=== PATIENT | female | born 1985 | race Caucasian/White ===

== ENCOUNTER 2020-12-28 16:31 | Outpatient (CLI) | payer BC, OTHER ==
[~2020-12-28] VITALS: Ht 160 cm; Wt 104.0 kg
[2020-12-28] MEDS ORDERED: PREN1TAB60 PO (16:34)
[2020-12-28] MEDS ORDERED: vit d (16:34)
[2020-12-28 16:47] VITALS: BP 150/79
[2020-12-28 17:05] LABS: BASOPHILS % (AUTO) 0 % (0-1); EOSINOPHILS % (AUTO) 4 % (1-7); LYMPHOCYTES % (AUTO) 20 % (22-44); MD NO; MEAN CORPUSCULAR HEMOGLOBIN 28.7 pg (27.0-34.8); MEAN CORPUSCULAR HGB CONC 33.8 g/dL (32.4-35.8); MONOCYTES % (AUTO) 8 % (2-9); NEUTROPHILS % (AUTO) 69 % (42-75); PLATELET COUNT 244 x10^3/uL (130-400); RED BLOOD COUNT 4.24 x10^6/uL (3.82-5.3); RED CELL DISTRIBUTION WIDTH 16.6 % (9.6-15.2)
[2020-12-28 17:06] VITALS: BP 150/79
[2020-12-28 17:07] LABS: ALANINE AMINOTRANSFERASE 16 U/L (12-78); ALBUMIN 2.7 g/dL (3.4-5.0); ANION GAP 9 mmol/L (5-15); CALCIUM 8.5 mg/dL (8.5-10.1); CHLORIDE 110 mmol/L (98-107); CREATININE 0.64 mg/dL (0.55-1.02)
[2020-12-28 17:09] LABS: ALKALINE PHOSPHATASE 96 U/L (45-117); BILIRUBIN,TOTAL 0.2 mg/dL (0.2-1.0); TOTAL PROTEIN 6.2 g/dL (6.4-8.2)
[2020-12-28 17:16] LABS: PROTEIN/CREATININE RATIO,URINE < 246 (0-200); TOTAL PROTEIN,URINE RANDOM < 5 mg/dL (0-12)
[2020-12-28] MEDS ORDERED: ACET325T14 PO (17:52)
[2020-12-28] MEDS ORDERED: OMEP-110 PO (17:52)
[2020-12-28] MEDS ORDERED: MISOPROSTOL 25 MCG TABLET ONE (18:18)
== END 2020-12-28 18:40 | disposition home or self-care (01) ==
LOC: LDOP 16:31
PROVIDERS: ATTEND Obstetrics & Gynecology Maternal & Fetal Medicine
DX: O16.3 Unspecified maternal hypertension, third trimester (principal); Z3A.37 37 weeks gestation of pregnancy
CPT/HCPCS: 36415; 59025; 80053; 82570; 84156; 84550; 85025

== ENCOUNTER 2020-12-29 12:58 | Inpatient (IN) | payer BC ==
[~2020-12-29] VITALS: Ht 160 cm; Wt 104.9 kg
[~2020-12-29 12:58] MED LIST: ACET325T14 PO; OMEP-110 PO; PREN1TAB60 PO; vit d
[2020-12-29 16:00] VITALS: BP 131/89
[2020-12-29] MEDS ORDERED: CALCIUM CARBONATE 500 MG TAB.CHEW PO PRN (16:30)
[2020-12-29] MEDS ORDERED: TERBUTALINE 1 MG/ML, 1ML SQ PRN (16:30)
[2020-12-29] MEDS: D5%-LACTATED RINGERS 1,000 ML IV SCH (16:30)
[2020-12-29] MEDS ORDERED: TERBUTALINE 1 MG/ML, 1ML IVPush PRN (16:30)
[2020-12-29] MEDS ORDERED: ONDANSETRON 2MG/ML, 2ML IVPush PRN (16:30)
[2020-12-29] MEDS ORDERED: OXYTOCIN 30U/ 0.9% NaCL 500ML 500 ML IV ONE (16:30)
[2020-12-29] MEDS ORDERED: FENTANYL PF 100 MCG/2ML IV PRN (16:30)
[2020-12-29] MEDS ORDERED: FENTANYL PF 100 MCG/2ML IVPush PRN (16:30)
[2020-12-29] MEDS: LACTATED RINGERS 1,000 ML IV SCH (16:30)
[2020-12-29] MEDS ORDERED: NEWBORN KIT ONE (16:36)
[2020-12-29] MEDS ORDERED: MISOPROSTOL 25 MCG TABLET ONE ×2 (16:36→21:15)
[2020-12-29] MEDS ORDERED: LIDOCAINE 1%, 20ML ONE (16:36)
[2020-12-29] MEDS ORDERED: MISOPROSTOL 200 MCG TABLET ONE (16:36)
[2020-12-29] MEDS ORDERED: OXYTOCIN 30U/ 0.9% NaCL 500ML 500 ML ONE (16:36)
[2020-12-29 17:53] LABS: BASOPHILS % (AUTO) 0 % (0-1); EOSINOPHILS % (AUTO) 3 % (1-7); LYMPHOCYTES % (AUTO) 20 % (22-44); MEAN CORPUSCULAR HEMOGLOBIN 28.6 pg (27.0-34.8); MEAN CORPUSCULAR HGB CONC 33.3 g/dL (32.4-35.8); MEAN PLATELET VOLUME 9.1 fL (7.4-10.4); MONOCYTES % (AUTO) 9 % (2-9); NEUTROPHILS % (AUTO) 67 % (42-75); PLATELET COUNT 254 x10^3/uL (130-400); RED BLOOD COUNT 4.11 x10^6/uL (3.82-5.3); RED CELL DISTRIBUTION WIDTH 16.8 % (9.6-15.2)
[2020-12-29 18:02] LABS: MD NO
[2020-12-29 20:02] VITALS: BP 125/60
[2020-12-29] MEDS: MISOPROSTOL 25 MCG TABLET VG PRN (21:31)
[2020-12-30] MEDS: LACTATED RINGERS 1,000 ML IV SCH ×3 (00:30→16:30)
[2020-12-30] MEDS: D5%-LACTATED RINGERS 1,000 ML IV SCH ×3 (00:30→16:30)
[2020-12-30] MEDS ORDERED: MISOPROSTOL 25 MCG TABLET ONE (02:43)
[2020-12-30] MEDS: MISOPROSTOL 25 MCG TABLET VG PRN (02:45)
[2020-12-30] MEDS ORDERED: FENTANYL PF 100 MCG/2ML ONE (09:29)
[2020-12-30] MEDS ORDERED: OXYTOCIN 30U/ 0.9% NaCL 500ML 500 ML IV PRN (18:30)
[2020-12-30 19:09] VITALS: BP 140/87
[2020-12-30] MEDS ORDERED: FENTANYL/BUPIV./NS/PF 250 ML EPIDCONT SCH (23:00)
[2020-12-30] MEDS ORDERED: LACTATED RINGERS 1,000 ML IVBOLUS PRN (23:00)
[2020-12-30] MEDS ORDERED: FENTANYL/BUPIV./NS/PF 250 ML EPIDCONT ONE (23:42)
[2020-12-30] MEDS ORDERED: BUPIVACAINE 0.25% ONE (23:44)
[2020-12-31] MEDS ORDERED: LACTATED RINGERS 1,000 ML IV SCH (00:30)
[2020-12-31] MEDS ORDERED: EPHEDRINE 50 MG/ML, 1ML IVPush PRN (00:30)
[2020-12-31] MEDS ORDERED: LACTATED RINGERS 1,000 ML IVBOLUS PRN (00:30)
[2020-12-31] MEDS: D5%-LACTATED RINGERS 1,000 ML IV SCH (00:30)
[2020-12-31] MEDS: LACTATED RINGERS 1,000 ML IV SCH (00:30)
[2020-12-31] MEDS ORDERED: FENTANYL/BUPIV./NS/PF 250 ML EPIDCONT SCH (00:30)
[2020-12-31] MEDS ORDERED: ACETAMINOPHEN 325 MG TABLET ONE (02:09)
[2020-12-31] MEDS ORDERED: ACETAMINOPHEN 325 MG TABLET PO PRN ×3 (02:30→03:30)
[2020-12-31] MEDS ORDERED: OXYTOCIN 30U/ 0.9% NaCL 500ML 500 ML IV SCH (03:30)
[2020-12-31] MEDS ORDERED: MISOPROSTOL 200 MCG TABLET PR PRN (03:30)
[2020-12-31] MEDS ORDERED: CARBOPROST TROMETHAMINE 250 MCG/ML, 1ML IM PRN (03:30)
[2020-12-31] MEDS ORDERED: DIPH,PERTUSS(ACELL),TET VAC/PF NC IM-VACC PRN (03:30)
[2020-12-31] MEDS ORDERED: SIMETHICONE 80 MG CHEW TAB PO PRN (03:30)
[2020-12-31] MEDS ORDERED: OXYcodone/APAP 5/325MG TABLET PO PRN ×2 (03:30)
[2020-12-31 06:38] VITALS: BP 135/78
[2020-12-31] MEDS: DOCUSATE 100 MG CAPSULE PO PRN ×2 (08:11→22:23)
[2020-12-31] MEDS: PRENATAL VIT/IRON/FA 1 EACH TABLET PO SCH (08:11)
[2020-12-31] MEDS: IBUPROFEN 600 MG TABLET PO PRN ×3 (08:13→22:23)
[2020-12-31 08:24] VITALS: BP 130/77
[2020-12-31 12:05] LABS: BASOPHILS % (AUTO) 0 % (0-1); EOSINOPHILS % (AUTO) 0 % (1-7); LYMPHOCYTES % (AUTO) 11 % (22-44); MEAN CORPUSCULAR HEMOGLOBIN 28.1 pg (27.0-34.8); MEAN CORPUSCULAR HGB CONC 32.8 g/dL (32.4-35.8); MEAN PLATELET VOLUME 8.7 fL (7.4-10.4); MONOCYTES % (AUTO) 6 % (2-9); NEUTROPHILS % (AUTO) 83 % (42-75); PLATELET COUNT 249 x10^3/uL (130-400); RED CELL DISTRIBUTION WIDTH 16.8 % (9.6-15.2)
[2020-12-31 12:06] LABS: MD NO
[2020-12-31 13:00] VITALS: BP 126/82
[2020-12-31 19:45] VITALS: BP 138/83
[2021-01-01 01:50] VITALS: BP 115/75
[2021-01-01] MEDS ORDERED: IBUP-1222 PO (07:02)
[2021-01-01 07:35] VITALS: BP 102/71
[2021-01-01] MEDS: DOCUSATE 100 MG CAPSULE PO PRN (07:48)
[2021-01-01] MEDS: PRENATAL VIT/IRON/FA 1 EACH TABLET PO SCH (07:48)
[2021-01-01] MEDS: IBUPROFEN 600 MG TABLET PO PRN (07:48)
== END 2021-01-01 12:18 | disposition home or self-care (01) | DRG 807 ==
LOC: EDIP 16:00 → LDIP 16:17 → 2NW 12-31 06:13
PROVIDERS: ADMIT Obstetrics & Gynecology Maternal & Fetal Medicine; ATTEND Obstetrics & Gynecology Maternal & Fetal Medicine
PROC: 10E0XZZ Delivery of Products of Conception, External Approach (ICD-10-PCS; principal; 2020-12-31)
PROC: 0KQM0ZZ Repair Perineum Muscle, Open Approach (ICD-10-PCS; 2020-12-31)
PROC: 3E0R3BZ Introduction of Anesthetic Agent into Spinal Canal, Percutaneous Approach (ICD-10-PCS; 2020-12-31)
PROC: 00HU33Z Insertion of Infusion Device into Spinal Canal, Percutaneous Approach (ICD-10-PCS; 2020-12-31)
DX: O13.4 Gestational [pregnancy-induced] hypertension without significant proteinuria, complicating childbirth (principal); Z37.0 Single live birth; O70.1 Second degree perineal laceration during delivery; Z3A.37 37 weeks gestation of pregnancy; Z20.822 Contact with and (suspected) exposure to COVID-19; Z88.8 Allergy status to other drugs, medicaments and biological substances
CPT/HCPCS: 36415; 85025; 86592; 86850; 86900; 87635; G0378; J3010; J2590; J7120